=== PATIENT | male | born 2005 | race African-American/Black ===

== ENCOUNTER 2024-06-05 14:41 | Emergency (ER) | payer OTHER ==
[2024-06-05] MEDS ORDERED: HYDROmorphone 0.5 MG/0.5 ML Syringe ONE (14:42)
[2024-06-05 14:50] LABS: BASOPHILS ABSOLUTE AUTO 0.04 K/uL (0.00-0.10); BASOPHILS PERCENT AUTO 0.8 % (0.1-1.3); EOSINOPHILS ABSOLUTE AUTO 0.08 K/uL (0.00-0.40); EOSINOPHILS PERCENT AUTO 1.7 % (0.0-5.4); HEMATOCRIT 42.4 % (38.4-49.7); HEMOGLOBIN 15.6 g/dL (12.9-16.9); IMMATURE GRAN PERCENT AUTO 0.2 % (0.0-0.7); LYMPHOCYTES ABSOLUTE AUTO 1.68 K/uL (0.8-3.3); LYMPHOCYTES PERCENT AUTO 35.7 % (11.4-47.7); MEAN CORPUSCULAR HGB CONC 36.8 g/dL (31.6-35.5); MEAN CORPUSCULAR VOLUME 87.1 fL (81.4-99.0); MONOCYTES ABSOLUTE AUTO 0.38 K/uL (0.20-0.90); MONOCYTES PERCENT AUTO 8.1 % (3.3-12.6); NEUTROPHILS ABSOLUTE AUTO 2.52 K/uL (1.0-7.6); NEUTROPHILS PERCENT AUTO 53.5 % (40.0-78.1); PLATELET COUNT,PLT 254 K/uL (130-375); RED BLOOD CELL COUNT 4.87 M/uL (4.14-5.76); WHITE BLOOD CELL COUNT,WBC 4.7 K/uL (3.2-11.0)
[2024-06-05] MEDS ORDERED: Sodium Chloride 0.9% 10 ML SDV FLUSH ONE (14:50)
[2024-06-05 14:54] LABS: IMMATURE GRAN ABSOLUTE AUTO 0.01 K/uL (0.00-0.23)
[2024-06-05 15:11] LABS: ANION GAP 12.8 mmol/L (5.0-14.0); CALCIUM 9.1 mg/dL (8.5-10.1); CREATININE 1.2 mg/dL (0.8-1.3); EST CRCL DRUG DOSING (CG) 95.79 mL/min; POTASSIUM,K 3.8 mmol/L (3.6-5.2)
[2024-06-05] MEDS: HYDROmorphone 0.5 MG/0.5 ML Syringe IVPUSH ONE ×3 (15:29→16:20)
[2024-06-05] MEDS: Iopamidol 612 MG/ML 100 ML Bottle IV PRN (15:41)
[2024-06-05] MEDS: Sodium Chloride 0.9% 80 ML IV SCH (15:41)
[2024-06-05] MEDS: Diphtheria,Pertussis(Acell),Tetanus Vaccine 0.5 ML Syringe IM ONE (17:58)
[2024-06-05] MEDS: diphenhydrAMINE 25 MG Cap PO ONE (17:58)
== END 2024-06-05 18:20 | disposition home or self-care (01) ==
LOC: JP.ED 14:41
DX: S02.31XA Fracture of orbital floor, right side, initial encounter for closed fracture (principal); Z23 Encounter for immunization; Z88.0 Allergy status to penicillin; Z88.8 Allergy status to other drugs, medicaments and biological substances; V86.55XA Driver of 3- or 4- wheeled all-terrain vehicle (ATV) injured in nontraffic accident, initial encounter; Y92.410 Unspecified street and highway as the place of occurrence of the external cause
CPT/HCPCS: 36415; 70450; 70486; 71260; 72125; 74177; 76377; 80048; 83605; 85025; 90471; 90715; 96374; 96376; 99284; A9270; J1170; J3490; Q9967